=== PATIENT | female | born 1955 | race Caucasian/White ===

== ENCOUNTER → 2016-10-20 | Outpatient (CLI) | payer MEDICARE, OTHER ==
[~2016-10-20] MED LIST: NO HOME MEDICATIONS
== END ==
LOC: BHSO 13:31
DX: F06.32 Mood disorder due to known physiological condition with major depressive-like episode (principal)

== ENCOUNTER → 2016-11-19 | Outpatient (CLI) | payer MEDICARE, OTHER | LOC: BHSO 15:03 | DX: F06.32 Mood disorder due to known physiological condition with major depressive-like episode (principal) ==

== ENCOUNTER → 2016-12-22 | Outpatient (CLI) | payer MEDICARE, OTHER | LOC: BHSO 15:23 | DX: F06.32 Mood disorder due to known physiological condition with major depressive-like episode (principal) ==

== ENCOUNTER → 2017-04-07 | Outpatient (CLI) | payer MEDICARE, OTHER | LOC: BHSO 14:52 | DX: F06.32 Mood disorder due to known physiological condition with major depressive-like episode (principal) | CPT/HCPCS: G0463 ==

== ENCOUNTER → 2017-07-27 | Outpatient (CLI) | payer MEDICARE, OTHER | LOC: BHSO 14:42 | DX: F06.32 Mood disorder due to known physiological condition with major depressive-like episode (principal) | CPT/HCPCS: G0463 ==

== ENCOUNTER 2017-10-23 09:18 | Observation (INO) | payer MEDICARE, OTHER ==
[~2017-10-23] VITALS: Ht 154.9 cm; Wt 61.3 kg
[2017-10-23 09:42] LABS: BASO % 0.5 % (0.0-2.0); EOS # 0.2 (0.0-0.7); EOS % 2.7 % (0-4.0); GRAN # 2.5 (1.4-6.5); GRAN % 37.6 % (42.2-75.2); HEMATOCRIT 45.1 % (37.0-47.0); HEMOGLOBIN 15.9 g/dl (12.5-16.0); LYMPH # 3.4 (1.2-3.4); LYMPH % 50.8 % (20.0-51.0); MEAN CELL VOLUME 91 fl (80.0-100.0); MEAN CORPUSCULAR HEMOGLOBIN 32 pg (27.0-31.0); MEAN CORPUSCULAR HGB CONC 35 g/dl (33.0-37.0); MEAN PLATELET VOLUME 10.7 fl (7.4-10.4); MONO # 0.5 (0.1-0.6); MONO % 8.2 % (1.7-9.3); PLATELET COUNT 186 K/mm3 (130-400); RED BLOOD COUNT 4.95 M/mm3 (4.10-5.30); REDCELL DISTRIBUTION WIDTH-CV 12.7 % (11.5-14.5)
[2017-10-23 09:47] LABS: INR 0.8 (0.8-3.0); PROTHROMBIN TIME 9.2 SECONDS (9.7-12.8)
[2017-10-23 09:49] LABS: PARTIAL THROMBOPLASTIN TIME 32.2 SECONDS (26.0-37.0)
[2017-10-23] MEDS ORDERED: MELATONIN5 M1 PO (09:50)
[2017-10-23] MEDS ORDERED: NORCO 325 MG-101 TAB PO (09:50)
[2017-10-23] MEDS ORDERED: SEROQUEL 1100 MG/TAB PO (09:50)
[2017-10-23] MEDS ORDERED: ALOSETRON PO (09:50)
[2017-10-23] MEDS ORDERED: MULTIPLE VITAMI1 CAP PO (09:51)
[2017-10-23 09:54] LABS: ALANINE AMINOTRANSFERASE 29 U/L (9-52); ALBUMIN 4.6 gm/dL (3.5-5.0); ALKALINE PHOSPHATASE 87 U/L (50-136); ANION GAP 12 mmol/L (7-16); AST,SGOT 29 U/L (15-37); BILIRUBIN,TOTAL 0.4 mg/dL (0.0-1.0); BLOOD UREA NITROGEN 13 mg/dL (7-17); CALCIUM 9.2 mg/dL (8.4-10.2); CARBON DIOXIDE 21 mmol/L (22-30); CHLORIDE 103 mmol/L (98-107); CREATININE, serum 0.85 mg/dL (0.52-1.25); GLUCOSE 107 mg/dL (74-106); POTASSIUM 3.8 mmol/L (3.4-5.0); SODIUM 136 mmol/L (137-145); TOTAL PROTEIN 7.6 gm/dL (6.4-8.2)
[2017-10-23 10:05] LABS: TROPONIN-I < 0.012 ng/mL (0.000-0.034)
[2017-10-23 11:52] VITALS: BP 137/77; PULSE 68; TEMP 98.3
[2017-10-23 13:21] LABS: CHOLESTEROL 253 mg/dL (120-200); CHOLESTEROL RISK RATIO 3.5; HDL CHOLESTEROL 71 mg/dL; LDL CHOLESTEROL 158 mg/dL; TRIGLYCERIDE 122 mg/dL
[2017-10-23 13:35] LABS: TROPONIN-I 3 HR POST INITIAL < 0.012 ng/mL (0.000-0.034)
[2017-10-23 16:02] VITALS: BP 101/51; PULSE 62; TEMP 98.3
[2017-10-23 19:35] VITALS: BP 135/66; PULSE 64; TEMP 98.2
[2017-10-24] VITALS (7 sets, daily range): BP systolic 102–131; BP diastolic 49–68; PULSE 63–92; TEMP 98.2–98.3
[2017-10-24] MEDS ORDERED: PROTONIX 40MG T40 MG PO (14:38)
[2017-10-24] MEDS ORDERED: ASPIRIN E.C. 8181 MG PO (14:39)
[2017-10-24] MEDS ORDERED: LIPITOR 40MG TA40 MG PO (14:39)
[2017-10-24] MEDS ORDERED: XANAX .25M0.25 MG/TA PO (15:45)
== END 2017-10-24 16:10 | disposition home or self-care (01) ==
LOC: COL.ER 09:18 → MEDICAL 11:14
PROVIDERS: Family Medicine; Student in an Organized Health Care Education/Training Program
DX: R07.89 Other chest pain (principal); K50.90 Crohn's disease, unspecified, without complications; F41.9 Anxiety disorder, unspecified; G89.29 Other chronic pain; E78.5 Hyperlipidemia, unspecified; F17.210 Nicotine dependence, cigarettes, uncomplicated; Z79.82 Long term (current) use of aspirin; Z79.899 Other long term (current) drug therapy; I07.1 Rheumatic tricuspid insufficiency
CPT/HCPCS: 99222-AI; 99223-AI; A9502; G0378; J2785

== ENCOUNTER → 2017-10-26 | Outpatient (CLI) | payer MEDICARE, OTHER ==
[~2017-10-26] MED LIST changes: +ALOSETRON PO; +ASPIRIN E.C. 8181 MG PO; +LIPITOR 40MG TA40 MG PO; +MELATONIN5 M1 PO; +MULTIPLE VITAMI1 CAP PO; +NORCO 325 MG-101 TAB PO; +PROTONIX 40MG T40 MG PO; +SEROQUEL 1100 MG/TAB PO; +XANAX .25M0.25 MG/TA PO
== END ==
LOC: BHSO 13:58
DX: F06.32 Mood disorder due to known physiological condition with major depressive-like episode (principal)
CPT/HCPCS: G0463

== ENCOUNTER → 2017-11-17 | Outpatient (CLI) | payer MEDICARE, OTHER | LOC: BHSO 13:33 | DX: F06.32 Mood disorder due to known physiological condition with major depressive-like episode (principal) | CPT/HCPCS: G0463 ==

== ENCOUNTER → 2018-04-19 | Outpatient (CLI) | payer MEDICARE, OTHER | LOC: BHSO 14:19 | DX: F06.32 Mood disorder due to known physiological condition with major depressive-like episode (principal) | CPT/HCPCS: G0463 ==

== ENCOUNTER → 2018-11-09 | Outpatient (CLI) | payer MEDICARE, OTHER | LOC: BHSO 14:41 | DX: F06.32 Mood disorder due to known physiological condition with major depressive-like episode (principal) | CPT/HCPCS: G0463 ==

== ENCOUNTER → 2019-05-14 | Outpatient (CLI) | payer MEDICARE, OTHER | LOC: BHSO 13:55 | DX: F06.32 Mood disorder due to known physiological condition with major depressive-like episode (principal) | CPT/HCPCS: G0463 ==

== ENCOUNTER → 2019-09-03 | Outpatient (CLI) | payer MEDICARE, OTHER | LOC: BHSO 14:35 | DX: F31.81 Bipolar II disorder (principal) | CPT/HCPCS: G0463 ==